=== PATIENT | male | born 1945 | race Caucasian/White ===

== ENCOUNTER 2019-05-08 10:43 | Observation (INO) ==
[2019-05-08 11:32] LABS: Basophils # 0.1 10*3/uL (0.0-0.2); Basophils % 0.6 % (0.0-0.8); Eosinophils # 0.1 10*3/uL (0.0-0.87); Eosinophils % 1.8 % (0.00-10.9); Hematocrit 38.9 VOL% (42.0-52.0); Hemoglobin 12.6 GM/DL (14.0-18.0); Immature Granulocytes % 0.6 %; Immature Granulocytes Absolute 0.05 #; Lymphocytes # 1.4 10*3/uL (1.4-4.0); Lymphocytes % 17.3 % (21.2-54.2); Mean Corpuscular HGB Conc 32.4 GM/DL (32-36); Mean Corpuscular Volume 92.4 FL (87-102); Mean Platelet Volume 12.8 FL (9.6-12.0); Monocytes % 6.3 % (1.7-12.7); Neutrophils % 73.4 % (38.7-73.9); Platelet Count 143 T/CUMM (130-400); Red Blood Count 4.21 MC/CUMM (3.8-5.5); Red Cell Distribution Width 12.6 % (9.3-17.3); White Blood Count 7.9 T/CUMM (4-12)
[2019-05-08 11:53] LABS: Albumin 3.7 G/DL (3.4-5.0); Bilirubin,Total 0.6 MG/DL (0.2-1.0); Calcium 7.8 MG/DL (8.5-10.1); Osmolality,Calculated 286.1 MOS/KG (273-304); Total Protein 6.4 G/DL (6.4-8.3)
[2019-05-08] MEDS ORDERED: GLUCAGON 1 MG VIAL IM PRN (14:59)
[2019-05-08] MEDS ORDERED: DOCUSATE SODIUM 100 MG CAPSULE PO PRN (14:59)
[2019-05-08] MEDS ORDERED: ONDANSETRON 4 MG/2 ML VIAL IV PRN (14:59)
[2019-05-08] MEDS ORDERED: guaiFENesin/DM ER 600-30 MG TABLET PO PRN (14:59)
[2019-05-08] MEDS ORDERED: ACETAMINOPHEN 325 MG TABLET PO PRN (14:59)
[2019-05-08] MEDS ORDERED: DEXTROSE 10% 250 ML BAG IV PRN (14:59)
[2019-05-08] MEDS ORDERED: AZITHROMYCIN INJ 500 MG in SODIUM CHLORIDE 0.9% 250 ML IV SCH (15:00)
[2019-05-08] MEDS ORDERED: ALBUTEROL 2.5 MG/3 ML NEB RESP TX PRN (15:03)
[2019-05-08] MEDS ORDERED: cefTRIAXone 1,000 MG in SYRINGE 1 EACH IV SCH (16:00)
[2019-05-08 18:29] LABS: Risk Ratio 3.02; Thyroid Stimulating Hormone 2.08 uIU/ml (0.358-3.74)
[2019-05-08] MEDS: INSULIN LISPRO 100 UNIT/ML SUBCUT SCH ×2 (18:45→20:08)
[2019-05-08] MEDS: ALBUTEROL/IPRATROPIUM 3 ML NEB RESP TX SCH (19:48)
[2019-05-08] MEDS ORDERED: FUROSEMIDE 20 MG/2 ML VIAL IV ONE (20:06)
[2019-05-08] MEDS ORDERED: INSULIN GLARGINE 100 UNIT/ML SUBCUT SCH (21:00)
[2019-05-08] MEDS ORDERED: ENOXAPARIN 40 MG/0.4 ML SYRINGE SUBCUT SCH (21:00)
[2019-05-08] MEDS: CHOLECALCIFEROL 5,000 UNIT TABLET PO SCH (21:07)
[2019-05-08] MEDS: BACLOFEN 10 MG TABLET PO SCH (21:07)
[2019-05-08] MEDS: ASPIRIN EC 81 MG TABLET PO SCH (21:07)
[2019-05-09] MEDS: ALBUTEROL/IPRATROPIUM 3 ML NEB RESP TX SCH ×2 (01:16→07:20)
[2019-05-09 04:32] LABS: Basophils % 0.5 % (0.0-0.8); Eosinophils # 0.2 10*3/uL (0.0-0.87); Eosinophils % 2.5 % (0.00-10.9); Hematocrit 37.6 VOL% (42.0-52.0); Hemoglobin 12.2 GM/DL (14.0-18.0); Immature Granulocytes % 0.5 %; Immature Granulocytes Absolute 0.04 #; Lymphocytes # 1.9 10*3/uL (1.4-4.0); Lymphocytes % 21.9 % (21.2-54.2); Mean Corpuscular HGB Conc 32.4 GM/DL (32-36); Mean Corpuscular Volume 92.4 FL (87-102); Mean Platelet Volume 12.7 FL (9.6-12.0); Monocytes % 6.9 % (1.7-12.7); Neutrophils % 67.7 % (38.7-73.9); Platelet Count 133 T/CUMM (130-400); Red Blood Count 4.07 MC/CUMM (3.8-5.5); Red Cell Distribution Width 12.5 % (9.3-17.3); White Blood Count 8.7 T/CUMM (4-12)
[2019-05-09 05:06] LABS: Calcium 7.7 MG/DL (8.5-10.1); Osmolality,Calculated 286.7 MOS/KG (273-304)
[2019-05-09] MEDS ORDERED: LEVOTHYROXINE 175 MCG TABLET PO SCH (07:00)
[2019-05-09] MEDS ORDERED: FUROSEMIDE 20 MG/2 ML VIAL IV SCH (08:00)
[2019-05-09] MEDS: INSULIN LISPRO 100 UNIT/ML SUBCUT SCH ×2 (08:31→11:49)
[2019-05-09] MEDS ORDERED: LOSARTAN 25 MG TABLET PO SCH (09:00)
[2019-05-09] MEDS ORDERED: PANTOPRAZOLE 40 MG TABLET PO SCH (09:00)
[2019-05-09] MEDS ORDERED: CYANOCOBALAMIN 500 MCG TABLET PO SCH (09:00)
[2019-05-09] MEDS ORDERED: DOXAZOSIN 4 MG TABLET PO SCH (09:00)
[2019-05-09] MEDS ORDERED: CITALOPRAM 20 MG TABLET PO SCH (09:00)
[2019-05-09] MEDS ORDERED: ATENOLOL 25 MG TABLET PO SCH (09:00)
[2019-05-09] MEDS ORDERED: INSULIN LISPRO 100 UNIT/ML SUBCUT SCH (09:30)
[2019-05-09] MEDS ORDERED: INSULIN LISPRO 100 UNIT/ML SUBCUT ONE (09:30)
[2019-05-09] MEDS: ASPIRIN EC 81 MG TABLET PO SCH (09:55)
[2019-05-09] MEDS: CHOLECALCIFEROL 5,000 UNIT TABLET PO SCH (09:55)
[2019-05-09] MEDS: BACLOFEN 10 MG TABLET PO SCH (11:22)
[2019-05-09 11:45] VITALS: BP 123/63
[2019-05-10] MEDS ORDERED: LEVOTHYROXINE 150 MCG TABLET PO SCH (07:00)
== END 2019-05-09 14:14 | disposition home or self-care (01) ==
LOC: N.ED 10:43 → N.EDINP 10:43 → N.2W 15:50
PROVIDERS: ADMIT Hospitalist; ATTEND Hospitalist

== ENCOUNTER 2022-01-01 15:09 | Observation (INO) ==
[2022-01-01] MEDS ORDERED: ASPIRIN 325 MG TABLET PO STA (15:49)
[2022-01-01 15:59] LABS: Basophils # 0.1 10*3/uL (0.0-0.2); Basophils % 0.6 % (0.0-0.8); Eosinophils # 0.2 10*3/uL (0.0-0.87); Eosinophils % 1.7 % (0.00-10.9); Hematocrit 38.2 VOL% (42.0-52.0); Hemoglobin 12.3 GM/DL (14.0-18.0); Immature Granulocytes % 0.7 %; Immature Granulocytes Absolute 0.06 #; Lymphocytes % 34.5 % (21.2-54.2); Mean Corpuscular HGB Conc 32.2 GM/DL (32-36); Mean Platelet Volume 11.8 FL (9.6-12.0); Monocytes # 0.5 10*3/uL (0.11-0.8); Monocytes % 6.1 % (1.7-12.7); Neutrophils % 56.4 % (38.7-73.9); Platelet Count 173 T/CUMM (130-400); Red Blood Count 4.15 MC/CUMM (3.8-5.5); Red Cell Distribution Width 12.8 % (9.3-17.3); White Blood Count 8.8 T/CUMM (4-12)
[2022-01-01 16:20] LABS: Albumin 3.8 G/DL (3.4-5.0); Bilirubin,Total 0.4 MG/DL (0.20-1.00); Calcium 8.6 MG/DL (8.5-10.1); Potassium 4.5 MMOL/L (3.5-5.1)
[2022-01-01] MEDS ORDERED: ACETAMINOPHEN 325 MG TABLET PO PRN (17:43)
[2022-01-01] MEDS ORDERED: GLUCAGON 1 MG VIAL IM PRN (17:43)
[2022-01-01] MEDS ORDERED: ONDANSETRON 4 MG/2 ML VIAL IV PRN (17:43)
[2022-01-01] MEDS ORDERED: DOCUSATE SODIUM 100 MG CAPSULE PO PRN (17:43)
[2022-01-01] MEDS ORDERED: MORPHINE 2 MG/1 ML SYRINGE IV PRN (17:43)
[2022-01-01] MEDS ORDERED: NITROGLYCERIN SL 0.4 MG TABLET SL PRN (17:49)
[2022-01-01] MEDS ORDERED: DEXTROSE 10% 250 ML BAG IV PRN (17:52)
[2022-01-01] MEDS ORDERED: SODIUM CHLORIDE 0.45% 1,000 ML IV SCH (19:00)
[2022-01-01] MEDS ORDERED: ENOXAPARIN 40 MG/0.4 ML SYRINGE SUBCUT SCH (21:00)
[2022-01-01] MEDS ORDERED: FINASTERIDE 5 MG TABLET PO SCH (21:00)
[2022-01-01] MEDS: INSULIN REGULAR 100 UNIT/ML SUBCUT SCH (21:30)
[2022-01-01] MEDS: BACLOFEN 10 MG TABLET PO SCH (21:30)
[2022-01-01] MEDS: IMIPRAMINE 25 MG TABLET PO SCH (21:30)
[2022-01-02 05:27] LABS: Basophils # 0.1 10*3/uL (0.0-0.2); Basophils % 0.5 % (0.0-0.8); Eosinophils # 0.2 10*3/uL (0.0-0.87); Eosinophils % 1.6 % (0.00-10.9); Hematocrit 37.8 VOL% (42.0-52.0); Immature Granulocytes % 0.7 %; Immature Granulocytes Absolute 0.07 #; Lymphocytes # 2.9 10*3/uL (1.4-4.0); Lymphocytes % 29.8 % (21.2-54.2); Mean Corpuscular HGB Conc 31.7 GM/DL (32-36); Mean Corpuscular Volume 92.4 FL (87-102); Mean Platelet Volume 12.2 FL (9.6-12.0); Monocytes # 0.7 10*3/uL (0.11-0.8); Monocytes % 7.1 % (1.7-12.7); Neutrophils % 60.3 % (38.7-73.9); Platelet Count 179 T/CUMM (130-400); Red Blood Count 4.09 MC/CUMM (3.8-5.5); Red Cell Distribution Width 12.9 % (9.3-17.3); White Blood Count 9.7 T/CUMM (4-12)
[2022-01-02 05:55] LABS: Calcium 8.5 MG/DL (8.5-10.1); Osmolality,Calculated 278.8 MOS/KG (273-304); Thyroid Stimulating Hormone 7.82 uIU/ml (0.358-3.74); VLDL Cholesterol 27.8 MG/DL
[2022-01-02 08:03] VITALS: BP 140/60
[2022-01-02] MEDS: INSULIN REGULAR 100 UNIT/ML SUBCUT SCH (08:20)
[2022-01-02] MEDS: IMIPRAMINE 25 MG TABLET PO SCH (08:23)
[2022-01-02] MEDS: BACLOFEN 10 MG TABLET PO SCH (08:24)
[2022-01-02] MEDS ORDERED: LOSARTAN 25 MG TABLET PO SCH ×2 (09:00)
[2022-01-02] MEDS ORDERED: ASPIRIN EC 325 MG TABLET PO SCH (09:00)
[2022-01-02] MEDS ORDERED: ASPIRIN EC 81 MG TABLET PO SCH (09:00)
[2022-01-02] MEDS ORDERED: PANTOPRAZOLE 40 MG TABLET PO SCH (09:00)
[2022-01-02] MEDS ORDERED: atenoloL 25 MG TABLET PO SCH (09:00)
[2022-01-02] MEDS ORDERED: CITALOPRAM 20 MG TABLET PO SCH (09:00)
[2022-01-03] MEDS ORDERED: LEVOTHYROXINE 175 MCG TABLET PO SCH (06:30)
[2022-01-03] MEDS ORDERED: LEVOTHYROXINE 150 MCG TABLET PO SCH (06:30)
== END 2022-01-02 11:04 | disposition home or self-care (01) ==
LOC: N.EDINP 15:09 → N.ED 15:09 → N.TELES 20:30
PROVIDERS: ADMIT Internal Medicine; ATTEND Internal Medicine